=== PATIENT | female | born 1945 | race Caucasian/White ===

== ENCOUNTER → 2019-05-16 09:58 | Outpatient (CLI) | payer MEDICARE, BC ==
[2015-12-23 11:32] VITALS: BMI 29.2
[~2019-05-16 09:58] MED LIST: ASPIRIN325 MG PO; BAYER CHEWABLE81 MG PO; BENICAR HCT 40-1 TA1 PO; BUPROPION HCL100 M1 PO; CALCIUM 600 +1 EAC3 PO; CENTRUM COMPLE1 EACH PO; COREG CR40 MG PO; NEURONTIN 300300 MG PO; PLAQUENIL200 MG PO; PLAVIX75 MG PO; PRAVACHOL40 MG PO; RESTORIL15 MG PO; VICOPROFEN 7.5/1 TAB PO; ZANAFLEX4 MG PO; [UNRECOGNIZED DRUG - OTHER] PO
--- NOTE | 2019-05-20 14:29 | EC ---
PATIENT:RALF VALDEZ DATE OF SERVICE: 05/16/19 SEX: F MEDICAL RECORD: [id number] DATE OF : [birth year] LOCATION:[facility] AGE OF PATIENT: 74 ADMISSION DATE: 05/16/19 REFERRING PHYSICIAN: INTERPRETING PHYSICIAN: RUTH DIXON MD ECHOCARDIOGRAM REPORT ECHO CHARGES 4 ECHO COMPLETE Date: 05/16/19 CLINICAL DIAGNOSIS: SOB H/O CAD/HTN ECHOCARDIOGRAPHIC MEASUREMENTS (adult normal given) AC root (d.<3.7cm) 2.6 cm LV Septum d (<1.2 cm> 1.0 cm Valve Excursion 1.5 cm LV Septum (systole) 1.6 cm Left Atria (s.<4.0cm> 5.2 cm LVPW d(<1.2cm) 1.1 cm RV (d.<2.3cm) 2.8 cm LVPW (sytole) 1.6 cm LV diastole(<5.6CM) 5.3 cm MV E-F(>70mm/sec) cm LV systole 3.6 cm LVOT Diameter 2.0 cm MV exc.(>10mm) cm Est.ejection fraction (50-75%) % DOPPLER: LVIT cm/sec A 93.0 cm/sec E 70.0 cm/sec LA cm/sec RVSP 23.0 mmHg LVOT 116 cm/sec AOP1/2T m/s Asc. Ao 158 cm/sec RVOT 60.0 cm/sec RA cm/sec PA 93.0 cm/sec AV Gradient Peak 10.0 mmHg AV Mean 4.8 mmHg AV Area 2.7 cm MV Gradient Peak 3.8 mmHg MV Mean 1.3 mmHg MV Area cm COMMENTS: OP - HC Woodworking Machine Operator: 1 CRUZITO ILIANA Actuarial Science Professor: 3 Dr. Villanueva TAPE# PACS Pericardial Effusion N DATE OF SERVICE: Adequate 2D, color flow, spectral Doppler, and M-Mode. No LVH. LV internal dimensions are normal. Wall motion is normal. EF is greater than or equal to 55%. Aortic valve is tricuspid. No evidence of stenosis by Doppler interrogation. Mild AI by color flow imaging. Left atrium is dilated at 5.2 cm. Mitral valve shows no prolapse. Vdem-ij-ghpfeycw MR. Right-sided chambers are grossly normal. Mild TR. TRANSINT:[id number] Voice Confirmation ID: [id number] DOCUMENT ID: [id number] ECHOCARDIOGRAM REPORT [id number] RALF VALDEZ,RUTH Rosado MD at 1429 CC: [id number] DICTATION DATE: 05/19/19 1302 AUTO REBUILDER: 05/19/19 1319 DEP CLI 05/16/19 [place] [id number] [place] [id number]
== END | disposition home or self-care (01) ==
LOC: D.HCCARDIO 09:58
PROVIDERS: ATTEND Internal Medicine Interventional Cardiology
DX: I25.10 Atherosclerotic heart disease of native coronary artery without angina pectoris (principal)

== ENCOUNTER → 2019-06-05 09:35 | Outpatient (CLI) | payer MEDICARE, BC ==
[2015-12-23 11:32] VITALS: BMI 29.2
--- NOTE | 2019-06-09 14:34 | ST ---
PATIENT:RALF VALDEZ MEDICAL RECORD: [id number] SEX: F LOCATION:[facility] ORDER #: ADMISSION DATE: 06/05/19 AGE OF PATIENT: 74 REFERRING PHYSICIAN: INTERPRETING PHYSICIAN: PETE HEBERT MD DATE OF SERVICE: 06/05/2019 PROCEDURE: Nuclear stress test. INDICATION: Angina, coronary artery disease, and hypertension. She was exercised on standard Lexiscan protocol with 31 mCi sestamibi injected at peak stress, 10 mCi used previously for rest images. FINDINGS: Gated SPECT reveals preserved ejection fraction at 59% with good wall motion and thickening and brightening throughout all segments. SPECT imaging Cardiolite was used as myocardial perfusion agent. There is severe reversibility anteriorly and apically, this includes basal, mid apical, and anterior segments as well as the apex itself. The degree of reversibility is severe. The amount of myocardium involved is moderate. OVERALL IMPRESSION: 1. This is an intermediate to high risk nuclear stress test with reversible ischemia anteriorly and apically. 2. Gated SPECT reveals preserved ejection fraction at 59%. In this patient with ongoing symptomatology, the current scan does suggest the presence of clinically significant coronary artery disease. TRANSINT:[id number] Voice Confirmation ID: [id number] DOCUMENT ID: [id number] PETE HEBERT MD at 1434 CC: OCTAVIO LOPEZ [id number] DICTATION DATE: 06/08/19 1229 MESSAGING ARCHITECT: 06/08/19 1244 DEP CLI 06/05/19 [place] [id number]
== END | disposition home or self-care (01) ==
LOC: D.HCCARDIO 09:35
PROVIDERS: ATTEND Internal Medicine Interventional Cardiology
DX: I20.9 Angina pectoris, unspecified (principal)

== ENCOUNTER → 2019-06-09 09:18 | Outpatient (CLI) | payer MEDICARE, BC ==
[2015-12-23 11:32] VITALS: BMI 29.2
== END | disposition home or self-care (01) ==
LOC: D.US 09:18
PROVIDERS: ATTEND Internal Medicine Interventional Cardiology
DX: R09.89 Other specified symptoms and signs involving the circulatory and respiratory systems (principal)

== ENCOUNTER 2019-06-17 10:54 | Outpatient (CLI) | payer MEDICARE, BC ==
[~2019-06-17] VITALS: Ht 162.6 cm; Wt 77.3 kg
--- NOTE | ~2019-06-17 | HEMODYNAMI ---
PATIENT:RALF VALDEZ MEDICAL RECORD: [id number] : 49 LOCATION:D.CAT ADMISSION DATE: 06/17/19 Generatedon:06/18/20198:35 Patient name: RALF VALDEZ Patient #: [id number] SSN: [id number] : 1945 Date of study: 06/17/2019 Page: Of Hemodynamic Procedure Report Patient Data Patient Demographics Procedure consent was obtained First Name: RALF Gender: Female Last Name: JOSÉ MIGUEL : 1945 Patient #: [id number] Age: 74 year(s) Race: SSN: [id number] Additional ID: [id number] Contact details [address]: [address] [place] [address] State: [place] City: [place] Zip code: [address] Past Medical History Performed procedures and imaging results Date Procedure Procedure Results Comments Stress testing with Positive SPECT MPI Allergies Allergen Reaction Date Comments Reported Penicillins 10/11/2014 Other 10/11/2014 Lisinopril allergy Other 06/17/2019 BENADRYL/LISIOPRIL/PCN allergy Admission Admission Data Admission Date: 06/17/2019 Admission Time: 10:54 Arrival Date: 06/17/2019 Arrival Time: 0:00 Admit Source: Other Insurance Payor: Medicare [facility] #: [id number] Height (in.): 64.17 BSA: 1.83 (m2) Height (cm.): 163 BMI: 28.98 (kg/m2) Weight (lbs.): 169.76 Weight (kg.): 77 Lab Results Lab Result Date: 06/17/2019 Lab Result Time: 0:00 Biochemistry Name Units Result Min Max BUN mg/dl 21 --(----)-* 7 18 Creatinine mg/dl 0.7 --(*---)-- 0.6 1.3 eGFR ml/min 87 -*(----)-- 90 120 NONAFRICAN CBC Name Units Result Min Max Hemoglobin g/dl 12.9 -*(----)-- 13.5 17.5 Procedure Procedure Types Cath Procedure Diagnostic Procedure [facility] w/Coronaries FFR/IVUS FFR Initial Sedation Charges Moderate Sedation up to 15 minutes Procedure Description Procedure Date Procedure Date: 06/17/2019 Procedure Start Time: 13:11 Procedure End Time: 13:28 Procedure Staff Name Function Lyudmila Ohara RT Scrub Hemant Laura MD Performing Physician Cele Cruz RT Monitor Kirill Lee RN Nurse Roula Hernandez RT Monitor Anai Machado RN Window Shade Cutter And Mounter Indication CAD Procedure Data Cath Procedure Fluoroscopy Diagnostic fluoroscopy Total fluoroscopy Time: 1.6 time: 1.6 min min Diagnostic fluoroscopy Total fluoroscopy dose: 325 dose: 325 mGy mGy Contrast Material Contrast Material Type Amount (ml) Isovue 300 60 Entry Location Entry Primary Successful Side Size Upsize Upsize Entry Closure Succes sful Closure Location (Fr) 1 (Fr) 2 (Fr) Remarks Device Remarks Femoral Right 5 Fr 6 Fr Exoseal artery Short Estimated blood loss: 5 ml Diagnostic catheters Device Type Used For End Catheter Placement MULTIPACK JL 4.0 5Fr Left Coronary catheter Angiography MULTIPACK 3DRC 5Fr Right Coronary catheter Angiography MULTIPACK Pigtail 5 Fr LV Angiography catheter Procedure Complications No complications Procedure Medications Medication Administration Route Dosage Versed I.V. 2 mg Fentanyl I.V. 100 mcg Versed I.V. 2 mg 0.9% NaCl I.V. 100 ml/hr Oxygen etCO2 Nasal cannula 2 l/min Heparin Flush Bag added to field 2 bags (1000units/500ml NS) Lidocaine 2% added to field 20 Hemodynamics Rest HGB: 12.9 (g/dl) O2 Consumption: Estimated: 164.1 (ml/min) O2 Consumption indexe d: Estimated:89.67 (ml/min/m) Heart Rate: 65 (bpm) Pressure Samples Time Site Value (mmHg) Purpose Heart Use Rate(bpm) 13:16 LV 90/32,17 Snapshot 71 Gradients Valve Time Site Site Mean SEP/DFP Peak To Heart Use 1 2 (mmHg) (sec/min) Peak Rate (mmHg) (bpm) Aortic 13:16 LV AO 77 Snapshots Pre Cath Intra NCS Post Cath Vital Signs Time Heart Resp SPO2 etCO2 NIBP Rhythm Pain Sedation Rate (ipm) (%) (mmHg) (mmHg) Status Level (bpm) 12:58:39 65 10 100 24.8 139/68(97) NSR 0 (11) 10(A) , No pain 13:02:47 60 16 97 29.3 118/65(83) NSR 0 (11) 10(A) , No pain 13:07:00 56 11 94 42.1 106/58(91) NSR 0 (11) 10(A) , No pain 13:11:10 59 12 95 41.3 109/62(90) NSR 0 (11) 10(A) , No pain 13:15:20 63 13 94 42.1 90/50(78) NSR 0 (11) 9(A) , No pain 13:19:24 60 12 94 42.1 102/57(86) NSR 0 (11) 9(A) , No pain 13:23:34 58 22 95 40.6 105/53(91) NSR 0 (11) 10(A) , No pain 13:27:46 60 9 96 41.3 100/57(86) NSR 0 (11) 10(A) , No pain Medications Time Medication Route Dose Verified Delivered Reason Notes Eff ectiveness by by 13:04:02 0.9% NaCl I.V. 100 Kirill Kirill Per ml/hr Rosa Lee physician RN RN 13:04:21 Heparin Flush added 2 Kirill Kirill used for Bag to bags Lorigan Rosa procedure (1000units/500ml field RN RN NS) 13:04:32 Lidocaine 2% added 20ml Kirill Kirill for local to vial Lorigan Lorigan anesthetic field RN RN 13:05:12 Oxygen etCO2 2 Kirill Kirill for low 02 Nasal l/min Lorigan Lorigan sats cannula RN RN 13:08:18 Versed I.V. 2 mg Kirill Kirill for Lorigan Lorigan sedation RN RN 13:08:29 Fentanyl I.V. 100 Kirill Kirill for mcg Lorigan Lorigan sedation RN RN 13:11:01 Versed I.V. 2 mg Kirill Kirill for Lorigan Lorigan sedation RN special agent group insurance Log Time Note 12:48:00 Diagnostic Cath Status : Elective 12:48:21 Indication : CAD 12:48:51 Kirill Lee RN sent for patient. Start room use. 12:50:16 Informed consent obtained and on chart 12:52:30 Admit Source: Other 12:52:41 ACC Patient presents with Stable Angina CCS Anginal Class 2--Slight limitation of ordinary activity. 12:52:48 Procedure Status Elective Heart Cath (OP). 12:52:54 Time tracking: Regular hours (M-F 7:00 - 5:00) 12:53:02 Plan of Care:Hemodynamics will remain stable., Cardiac rhythm will remain stable., Comfort level will be maintained., Respiratory function will remain adequate., Patient/ family verbilizes understanding of procedure., Procedure tolerated without complication., Recovers from procedure without complications.. 12:53:09 Patient received from Pre/Post Procedure Room to CCL 1 Alert and oriented. Tansferred to table in Supine position. 12:53:35 Warm blankets applied, and ander hugger turned on for patient comfort. 12:53:36 Correct patient and procedure confirmed by team. 12:53:37 ECG and BP/O2 sat monitors applied to patient. 12:56:38 Patient Height : 64.17 inches 12:56:44 Patient Weight : 169.76 lbs 12:56:53 Arrival Date: 06/17/2019 12:00:00 AM 12:57:21 Insurance Payor : Medicare 12:57:35 Vital chart was started 12:57:38 Baseline sample Acquired. 12:58:05 Rhythm: sinus rhythm 12:58:08 Full Disclosure recording started 12:58:09 - 12:58:15 H&P Date Dictated: 06/17/2019 H&P Addendum completed by physician on day of procedure. (MUST COMPLETE FOR ALL OUTPATIENTS), New H&P dictated by physician.. 12:58:17 Pre-procedure instructions explained to patient. 12:58:18 Pre-op teaching completed and patient verbalized understanding. 12:58:21 Family in waiting room. 12:58:23 Patient NPO since Midnight. 12:58:58 Patient allergic to Other allergyBENADRYL/LISIOPRIL/PCN 12:59:06 Is the patient allergic to Iodine/contrast media? No. 12:59:13 Is patient on blood thinner?No 12:59:22 Patient diabetic? No. 12:59:26 ----Pre-sedation anethsthesia assessment.---- 12:59:31 Previous problem with sedation/anesthesia? No ? 12:59:34 Snore? No 12:59:36 Sleep apnea? No 12:59:38 Deviated septum? No 12:59:40 Opens mouth fully? Yes 12:59:41 Sticks out tongue? Yes 12:59:46 Airway obstruction? No ? 12:59:51 Dentures? No ? 12:59:57 Pre procedure: right dorsailis pedis pulse 2+ Normal; easily identifiable; not easily obliterated 13:00:23 Patient pain scale 0/10 ?. 13:00:33 IV patent on arrival in right antecubital with 0.9% NaCl at [facility]. 13:01:15 Lab Result : eGFR NONAFRICAN 87 ml/min 13:01:15 Lab Result : Hemoglobin 12.9 g/dl 13:01:15 Lab Result : BUN 21 mg/dl 13:01:15 Lab Result : Creatinine 0.7 mg/dl 13:01:28 Lab results completed and on chart. 13:01:35 Right groin area was prepped with chlora-prep and draped in sterile fashion 13:01:37 Alarms reviewed by R. N. 13:01:38 Sharps counted by scrub and verified by R.N. 13:01:46 Use device set Femoral Dx 13:01:47 ACIST Syringe (61512) opened to sterile field. 13:01:48 Bag Decanter (2002S) opened to sterile field. 13:01:49 Medline Cath Pack ([id number]) opened to sterile field. 13:01:52 ACIST Hand Control (19884) opened to sterile field. 13:02:00 ACIST Manifold (70483) opened to sterile field. 13:02:02 Tegaderm 4 x 4 (1626W) opened to sterile field. 13:02:21 SHEATH 5FR [place] (QQW587) opened to sterile field. 13:02:22 EMERALD Guide Wire (036-929) opened to sterile field. 13:02:42 DIAGNOSTIC Multipack 5Fr catheter set (OL6548) opened to sterile field. 13:04:02 0.9% NaCl 100 ml/hr I.V. was administered by Kirill Lee RN; Per physician; Verbal order read back and verified. 13:04:21 Heparin Flush Bag (1000units/500ml NS) 2 bags added to field was administered by Kirill Lee RN; used for procedure; Verbal order read back and verified. 13:04:32 Lidocaine 2% 20ml vial added to field was administered by Kirill Lee RN; for local anesthetic; Verbal order read back and verified. 13:05:08 Zero performed for pressure channel P1 13:05:12 Oxygen 2 l/min etCO2 Nasal cannula was administered by Kirill Lee RN; for low 02 sats; Verbal order read back and verified. 13:05:59 Physician arrived 13:06:00 --------ALL STOP TIME OUT------ 13:06:02 Final Timeout: patient, procedure, and site verified with staff and physician. All members of the team are in agreement. 13:06:05 Right groin site verified by team. 13:06:12 Fire Safety Assessment: A--An alcohol-based skin anteseptic being used preoperatively., C--Open oxygen or nitrous oxide is being used., D--An ESU, laser, or fiber-optic light is being used. 13:06:22 Physical assessment completed. ASA score P 2 - A patient with mild systemic disease as per Hemant Laura MD. 13:06:29 2) 60-89 Mildly reduced kidney function, and other findings (as for stage 1) point to kidney disease. 13:07:16 Maximum allowable contrast dose (3.7 X eGFR X 0.75)241 ml. 13:07:29 Sedation plan: IV Moderate Sedation Medication:Versed, Fentanyl 13:08:18 Versed 2 mg I.V. was administered by Kirill Lee RN; for sedation; Verbal order read back and verified. :08:29 Fentanyl 100 mcg I.V. was administered by Kirill Lee RN; for sedation; Verbal order read back and verified. 13:10:50 Zero performed for pressure channel P1 13:11:01 Versed 2 mg I.V. was administered by Kirill Lee RN; for sedation; Verbal order read back and verified. 13:11:03 Procedure started. 13:11:08 Local anesthetic to right femoral artery with Lidocaine 2% by Hemant Isabel MD.INITIAL ACCESS ONLY 13:12:00 A 5 Fr sheath was inserted into the Right Femoral artery 13:12:18 A MULTIPACK JL 4.0 5Fr catheter was advanced over the wire and used for Left Coronary Angiography. 13:13:05 LCA angiography performed. 13:13:11 Injector settings: Ml/sec: 3, Volume: 5, 13:13:49 Catheter removed. 13:13:58 A MULTIPACK 3DRC 5Fr catheter was advanced over the wire and used for Right Coronary Angiography. 13:14:30 RCA angiography performed. 13:15:38 Catheter removed. 13:15:42 ACCDominant side:Co-Dominant 13:15:56 A MULTIPACK Pigtail 5 Fr catheter was advanced over the wire and used for LV Angiography. 13:16:21 LV hemodynamics recorded. 13:16:26 LV gram done using REZA 13:16:41 EF : 55 % 13:17:01 INFLATOR Merit BasixCompak (QO3171) opened to sterile field. 13:17:35 SHEATH 6FR [place] (MNG362) opened to sterile field. 13:17:37 Drury Verrata Plus pressure wire (18320N) opened to sterile field. 13:17:50 GUIDE 6FR HS I catheter (LA6HSI) opened to sterile field. 13:18:03 Proceeding to intervention. 13:18:20 Sheath upsized to a 6 Fr Short. 13:18:36 6 Fr HS1 guide catheter was inserted over the wire 13:20:02 FFR/IFR wire advanced. 13:21:16 Wire advanced across lesion. 13:21:49 mRCA lesion measured at 1.00 with IFR 13:22:01 Wire removed. 13:22:02 Guide catheter removed. 13:22:25 EXOSEAL 6Fr (EX600) opened to sterile field. 13:22:47 Sheath removed intact; hemostasis achieved with Exoseal to the Right Femoral artery. 13:22:54 Procedure ended.(Physican Out) 13:24:14 Fluoroscopy time 01.60 minutes. 13:24:24 Fluoroscopy dose: 325 mGy 13:24:24 Flurop Dose total: 325 13:24:34 Dose Area Product 40973 mGy/cm. 13:25:04 Contrast amount:Isovue 300 60ml. 13:25:08 Maximum allowable dose exceeded? No. 13:25:11 Sharps counted by scrub and verified by R.N. 13:25:17 Insertion/operative site no bleeding no hematoma. 13:25:22 Post-op/insertion site Right Femoral artery dressed using a 4 x 4 and Tegaderm. 13:25:27 Post Procedure Pulses reassessed and unchanged 13:25:34 Post-procedure physical assessment completed. ASA score P 2 - A patient with mild systemic disease as per Hemant Laura MD. 13:25:38 Post procedure rhythm: unchanged. 13:25:42 Estimated blood loss: 5 ml 13:25:45 Post procedure instruction explained to patient.Patient verbalizes understanding. 13:25:46 Patient needs reinforcement of post procedure teaching. 13:27:20 Procedure type changed to Cath procedure, Diagnostic procedure, LHC, LH C w/Coronaries, FFR/IVUS, FFR Initial, Sedation Charges, Moderate Sedation up to 15 minutes 13:28:07 Procedure and supply charges have been captured, reviewed, submitted an d are correct. 13:28:16 Procedure Complication : No complications 13:28:20 Vital chart was stopped 13:28:21 See physician's report for complete and final results. 13:28:23 Report given to Pre/Post Procedure Room. 13:28:28 Patient transfered to Pre/Post Procedure Room with Stretcher. 13:28:36 Full Disclosure recording stopped 13:28:36 Procedure ended. 13:29:27 End room use (Document Last) 14:16:39 mild to moderate CAD (<70%) 14:17:52 Operative report dictated upon procedure completion. Device Usage Item Name Manufacture Quantity Catalog Hospital Part Current Minima l Lot# / Number Charge Number Stock Stock Serial# Code ACIST Acist 1 84426 252758 020868 406474 20 Syringe SameDayPrinting.com (63780) Systems Inc Bag Microtek 1 515314 86237 183470 5 Decanter Medical Inc. () Medline Medline 1 [id number] 431339 68586 730202 5 Cath Pack ([id number]) ACIST Hand Acist 1 83252 390801 593368 815675 5 Control Medical (18949) Systems Inc ACIST Acist 1 88555 437585 089946 928860 5 Manifold Medical (31019) Systems Inc Tegaderm 4 3M 1 1626W 775104 644275 071746 5 x 4 (1626W) SHEATH 5FR Terumo 1 RVI470 115674 642521 554576 5 [place] (WPH716) EMERALD Cardinal 1 502-455 512597 245494 789420 5 Guide Wire Health (502-455) DIAGNOSTIC Cardinal 1 PP8380 029435 87172 268184 30 Multipack Issuu 5Fr catheter set (WY3764) MULTIPACK Cardinal 1 296405 5 JL 4.0 5Fr Health catheter MULTIPACK Cardinal 1 198071 5 3DRC 5Fr Health catheter MULTIPACK Cardinal 1 393174 5 Pigtail 5 Health Fr catheter INFLATOR Merit 1 HG5640 652746 814635 806086 15 [facility] Medical BasixCompak (KS7570) SHEATH 6FR Terumo 1 IZU891 834425 136199 035267 40 [place] (SLP901) Drury Drury 1 94511L 927576 [id number] 767664 5 Verrata Plus pressure wire (51721I) GUIDE 6FR Medtronic 1 LA6HSI 147923 04689 418988 1 HS I catheter (LA6HSI) EXOSEAL 6Fr Cardinal 1 EX600 892162 709535 792018 10 (EX600) Health Signature Audit [place] Stage Time Signature Unsigned Intra-Procedure 06/17/2019 Cele 1:29:52 PM Anthony RT(R) (CV) Intra-Procedure 06/17/2019 Kirill 1:30:23 PM Rosa MENJIVAR Intra-Procedure 06/17/2019 Hemant Loera 1:35:45 PM Chalo STEWART Intra-Procedure 06/17/2019 Hemant Loera 1:47:31 PM Chalo STEWART Intra-Procedure 06/17/2019 Hemant Loera 3:49:42 [place] [address]
[2019-06-17] MEDS ORDERED: ASPIRIN325 MG PO (11:09)
[2019-06-17 11:14] VITALS: BP 124/74; Ht 162.6 cm; Wt 77.3 kg
[2019-06-17 11:28] LABS: BASOPHILS 0.2 % (0-2); EOSINOPHILS 1.8 % (0-7); HEMOGLOBIN 12.9 g/dL (12-16); IMMATURE GRANULOCYTES 0.2 % (0-5); LYMPHOCYTES 27.2 % (15-50); MCH 29.7 pg (26.0-34.0); MCHC 33.9 g/dL (31.0-37.0); MCV 87.4 fL (80.0-100.0); MEAN PLATELET VOLUME 10.8 fL (7.4-10.4); NEUTROPHILS 62.6 % (40-80); RBC 4.35 10x6/uL (4.00-5.40); WBC 8.9 10x3/uL (4.8-10.8)
[2019-06-17 11:29] LABS: PLATELET COUNT 119 10x3/uL (130-400)
[2019-06-17 11:42] LABS: ALT (SGPT) 26 U/L (10-68); CALC OSMOLALITY 281 mosm/kg (275-300); CALCIUM 8.9 mg/dL (8.5-10.1); CARBON DIOXIDE 29.4 mmol/L (21.0-32.0); CHLORIDE - SERUM 104 mmol/L (98-107); CHOL - HDL RATIO 4.2 ratio (2.3-4.1); CHOLESTEROL, TOTAL 233 mg/dL (0-200); CREATININE - SERUM 0.7 mg/dL (0.6-1.3); GLUCOSE 103 mg/dL (74-106); HDL CHOLESTEROL 55 mg/dL (32-96); LDL CHOLESTEROL 147 mg/dL (0-100); LDL-HDL RATIO 2.7 ratio (1.5-3.5); POTASSIUM - SERUM 3.6 mmol/L (3.5-5.1); SODIUM 140 mmol/L (136-145); TRIGLYCERIDE 158 mg/dL (30-200); UREA NITROGEN 21 mg/dL (7-18); eGFR NON AFRICAN AMERICAN 87 mL/min (90-120)
--- NOTE | 2019-06-17 13:38 | NUR ---
PT ARRIVED BY STRETCHER. PLACED ON MONITOR. DR. DIXON ROUNDED AND SPOKE WITH PT'S FAMILY. ASSESSMENT COMPLETED. CALL LIGHT WITHIN REACH.
--- NOTE | 2019-06-17 13:53 | NUR ---
PT RESTING COMFORTABLY. VSS. RIGHT GROIN DRESSING C/D/I. NO S/S OF HEMATOMA NOTED. CALL LIGHT WITHIN REACH. FAMILY AT BEDSIDE.
--- NOTE | 2019-06-17 14:23 | NUR ---
RIGHT GROIN DRESSING C/D/I. NO S/S OF HEMATOMA NOTED. CALL LIGHT WITHIN REACH. VSS. FAMILY AT BEDSIDE.
--- NOTE | 2019-06-17 14:45 | NUR ---
HEAD OF BED INC TO 30 DEGREES. TOLERATED WELL. RIGHT GROIN DRESSING C/D/I. NO S/S OF HEMATOMA NOTED. CALL LIGHT WITHIN REACH. FAMILY AT BEDSIDE.
--- NOTE | 2019-06-17 15:00 | NUR ---
PT SET UP WITH SANDWICH TRAY AND DRINK. DENIES NAUSEA AT THIS TIME. VSS. RIGHT GROIN DRESSING C/D/I. NO S/S OF HEMATOMA NOTED.
--- NOTE | 2019-06-17 15:20 | NUR ---
RIGHT ARM PIV D/C'D WITH CATH TIP INTACT. TOLERATED WELL. DISCUSSED DISCHARGE INSTRUCTIONS WITH PT. SHE VOICED UNDERSTANDING. RIGHT GROIN DRESSING C/D/I. NO S/S OF HEMATOMA NOTED. PT INSTRUCTED TO GET UP AND DRESSED AT THIS TIME.
--- NOTE | 2019-06-17 15:30 | NUR ---
PT AMBULATED TO RESTROOM. VOIDED WITHOUT DIFFICULTY. TAKEN OUT TO VEHICLE BY WHEELCHAIR. NO S/S OF DISTRESS NOTED. ALL BELONGINGS AND PAPERWORK IN HAND.
--- NOTE | 2019-06-18 11:08 | OP ---
PATIENT NAME: RALF VALDEZ MEDICAL RECORD: [id number] :49 LOCATION:D.CAT ADMISSION DATE: SURGEON: RUTH DIXON MD DATE OF OPERATION: 06/17/2019 PROCEDURES: Left heart catheterization, selective coronary angiography, plus IFR to the right coronary. CATHETERS: A 5-Marshallese sheath, 6-Marshallese sheath. A JL4 diagnostic JL4 and JR4 diagnostic pigtail catheter and toxic procedure was well tolerated. The patient was returned to berry. Sheath was removed. ExoSeal device placed. FINDINGS: Left ventriculography in 30-degree REZA view: Normal wall motion and normal systolic function. CORONARY ANATOMY: LEFT MAIN: Left main is free of disease. LAD: The area of previous LAD stenting is widely patent without evidence of restenosis. No progression of igiugig disease. CIRCUMFLEX: Circumflex free of disease. RIGHT CORONARY ARTERY: Has a questionable area of stenosis in mid portion, therefore we changed out to a 6-Marshallese and hockey stick guide catheter using IFR wire. This showed no evidence of significant obstruction of the right coronary as well. Noncardiac chest pain. TRANSINT:[id number] Voice Confirmation ID: [id number] DOCUMENT ID: [id number] RUTH DIXON MD at 1108 CC: [id number] DICTATION DATE: 06/17/19 1332 HOME ATTENDANT: 06/17/19 1639 DEP CLI 06/17/19 [facility] [address] [place] [address]
== END 2019-06-17 15:30 | disposition home or self-care (01) ==
LOC: D.CATH 10:54
PROVIDERS: ATTEND Internal Medicine Interventional Cardiology
DX: R07.89 Other chest pain (principal); R94.30 Abnormal result of cardiovascular function study, unspecified; I25.110 Atherosclerotic heart disease of native coronary artery with unstable angina pectoris

== ENCOUNTER → 2019-11-26 16:10 | Outpatient (CLI) | payer MEDICARE, BC ==
[2019-06-17 11:14] VITALS: BMI 29.2
[2019-11-26 16:42] LABS: CHOL - HDL RATIO 4.6 ratio (2.3-4.1); LDL-HDL RATIO 2.9 ratio (1.5-3.5)
== END | disposition home or self-care (01) ==
LOC: D.LABREF 16:10
PROVIDERS: ATTEND Nurse Practitioner
DX: I25.10 Atherosclerotic heart disease of native coronary artery without angina pectoris (principal); E78.5 Hyperlipidemia, unspecified

== ENCOUNTER → 2020-02-10 08:35 | Outpatient (CLI) | payer MEDICARE, BC ==
[2019-06-17 11:14] VITALS: BMI 29.2
== END | disposition home or self-care (01) ==
LOC: D.HCCARDIO 08:35
PROVIDERS: ATTEND Internal Medicine Cardiovascular Disease
DX: I25.119 Atherosclerotic heart disease of native coronary artery with unspecified angina pectoris (principal)

== ENCOUNTER → 2020-02-12 20:53 | Outpatient (CLI) | payer MEDICARE, BC ==
[2019-06-17 11:14] VITALS: BMI 29.2
== END | disposition home or self-care (01) ==
LOC: D.LABREF 20:53
PROVIDERS: ATTEND Internal Medicine Interventional Cardiology
DX: E78.5 Hyperlipidemia, unspecified (principal)

== ENCOUNTER 2020-02-18 07:11 | Outpatient (CLI) | payer MEDICARE, BC ==
[~2020-02-18] VITALS: Ht 162.6 cm; Wt 73.6 kg
--- NOTE | ~2020-02-18 | HEMODYNAMI ---
PATIENT:RALF VALDEZ MEDICAL RECORD: [id number] : 49 LOCATION:D.CAT ADMISSION DATE: 02/18/20 Generatedon:02/18/20209:14 Patient name: RALF VALDEZ Patient #: [id number] SSN: [id number] : 1945 Date of study: 02/18/2020 Page: Of Hemodynamic Procedure Report Patient Data Patient Demographics Procedure consent was obtained First Name: RALF Gender: Female Last Name: JOSÉ MIGUEL : 1945 Patient #: [id number] Age: 74 year(s) Race: SSN: [id number] Additional ID: [id number] Contact details Address: [address] [place] [address] State: [place] City: [place] Zip code: [address] Past Medical History Allergies Allergen Reaction Date Comments Reported Penicillins 10/11/2014 Other 10/11/2014 Lisinopril allergy Other 06/17/2019 BENADRYL/LISIOPRIL/PCN allergy Other 02/18/2020 LISINOPRIL/PENICILLINS/ROSUVASTATIN/STATINS-HMG- COA allergy REDUCTASE INHIBITORS Admission Admission Data Admission Date: 02/18/2020 Admission Time: 7:11 Arrival Date: 02/18/2020 Arrival Time: 0:00 Height (in.): 64 BSA: 1.8 (m2) Height (cm.): 162.56 BMI: 28.32 (kg/m2) Weight (lbs.): 165 Weight (kg.): 74.84 Lab Results Lab Result Date: 02/18/2020 Lab Result Time: 0:00 Biochemistry Name Units Result Min Max BUN mg/dl 19 --(----)*- 7 18 eGFR ml/min 87 -*(----)-- 90 120 NONAFRICAN CBC Name Units Result Min Max Hematocrit % 38.6 *-(----)-- 42 54 Hemoglobin g/dl 12.9 -*(----)-- 13.5 17.5 Procedure Procedure Types Cath Procedure Diagnostic Procedure [facility] w/Coronaries Sedation Charges Moderate Sedation up to 15 minutes PCI Procedure Coronary Stent Coronary Stent Initial Hemochron ACT Test Procedure Description Procedure Date Procedure Date: 02/18/2020 Procedure Start Time: 8:52 Procedure End Time: 9:12 Procedure Staff Name Function Hemant Laura MD Performing Physician Anai Machado RN Nurse Cele Cruz RT Monitor Natalya Orellana RT Scrub Roula Hernandez RT Business Trainer Procedure Data Cath Procedure Fluoroscopy Diagnostic fluoroscopy Total fluoroscopy Time: 3.5 time: 3.5 min min Diagnostic fluoroscopy Total fluoroscopy dose: 500 dose: 500 mGy mGy Contrast Material Contrast Material Type Amount (ml) Isovue 300 66 Entry Location Entry Primary Successful Side Size Upsize Upsize Entry Closure Succes sful Closure Location (Fr) 1 (Fr) 2 (Fr) Remarks Device Remarks Femoral Right 5 Fr 6 Fr Exoseal artery Short Estimated blood loss: 10 ml Diagnostic catheters Device Type Used For End Catheter Placement MULTIPACK JL 4.0 5Fr Left Coronary catheter Angiography MULTIPACK 3DRC 5Fr Right Coronary catheter Angiography MULTIPACK Pigtail 5 Fr LV Angiography catheter Procedure Complications No complications Procedure Medications Medication Administration Route Dosage 0.9% NaCl I.V. 100 ml/hr Oxygen etCO2 Nasal cannula 2 l/min Lidocaine 2% added to field 20 Heparin Flush Bag added to field 2 bags (1000units/500ml NS) Versed I.V. 2 mg Fentanyl 50 mcg Versed I.V. 2 mg Fentanyl 50 mcg Heparin Bolus I.V. 5000 units Integrilin (Bolus I.V. 6.8 ml 2mg/ml) Integrilin (Bolus wasted 3.2 ml 2mg/ml) Plavix P.O. 600 mg Hemodynamics Rest BSA: 1.8 (m2) HGB: 12.9 (g/dl) O2 Consumption: Estimated: 159.27 (ml/min) O2 Con sumption indexed: Estimated:88.48 (ml/min/m) Heart Rate: 62 (bpm) Pressure Samples Time Site Value (mmHg) Purpose Heart Use Rate(bpm) 8:56 LV 95/7,10 Snapshot 61 Gradients Valve Time Site Site Mean SEP/DFP Peak To Heart Use 1 2 (mmHg) (sec/min) Peak Rate (mmHg) (bpm) Aortic 8:57 LV AO 61 Snapshots Pre Cath Intra NCS Post Cath Vital Signs Time Heart Resp SPO2 etCO2 NIBP (mmHg) Rhythm Pain Sedation Rate (ipm) (%) (mmHg) Status Level (bpm) 8:37:30 64 12 100 35.1 135/68(106) NSR 0 (11) 10(A) , No pain 8:41:40 63 21 100 31.3 122/65(98) NSR 0 (11) 10(A) , No pain 8:45:56 59 14 99 41 119/58(94) SB 0 (11) 10(A) , No pain 8:50:08 62 15 97 35.8 107/59(86) NSR 0 (11) 10(A) , No pain 8:54:18 61 13 98 32.8 108/59(90) NSR 0 (11) 10(A) , No pain 8:58:30 61 15 98 34.3 104/54(81) NSR 0 (11) 9(A) , No pain 9:02:41 61 14 98 36.6 91/49(73) NSR 0 (11) 9(A) , No pain 9:06:45 63 16 96 20.9 97/57(78) NSR 0 (11) 10(A) , No pain 9:10:53 62 18 96 29.8 104/54(88) NSR 0 (11) 10(A) , No pain Medications Time Medication Route Dose Verified Delivered Reason Notes Effectiveness by by 8:36:29 0.9% NaCl I.V. 100 Hemant Anai used for ml/hr Keya Carter procedure MD MENJIVAR 8:36:34 Oxygen etCO2 2 Hemant Anai used for Nasal l/min KeyaChalo Machado procedure cannula RN 8:36:38 Lidocaine 2% added 20ml Hemant Marcos for local [facility] STEWART 8:36:44 Heparin Flush added 2 Hemant Hemant used for Bag to bags Keya Keya procedure (1000units/500ml field MD STEWART NS) 8:50:34 Versed I.V. 2 mg Hemant Anai for sedation St Chalo Machado MD RN 8:50:44 Fentanyl 50 Hemant Anai for sedation mcg [facility] Chalo Machado MD RN 8:54:52 Versed I.V. 2 mg Hemant Anai for sedation St Chalo Machado MD, RN 8:54:56 Fentanyl 50 Hemant Ospina for sedation mcg St Chalo Machado MD, RN 8:59:45 Heparin Bolus I.V. 5000 Hemant Ospina for verifi ed units St Chalo Machado anticoagulation with Dr. MD OTTO Villanueva 8:59:57 Integrilin I.V. 6.8 Hemant Ospina for (Bolus 2mg/ml) ml St Chalo Machado antiplatelet RN therapy 9:00:07 Integrilin wasted 3.2 Hemant Ospina for (Bolus 2mg/ml) ml St Chalo Machado antiplatelet RN therapy 9:00:14 Plavix P.O. 600 Hemant [address] for mg St Chalo Machado antiplatelet RN therapy Procedure Log Time Note 8:05:45 Informed consent obtained and on chart 8:07:14 Procedure Status Elective Heart Cath (OP). 8:07:18 Time tracking: Regular hours (M-F 7:00 - 5:00) 8:07:28 Plan of Care:Hemodynamics will remain stable., Cardiac rhythm will remain stable., Comfort level will be maintained., Respiratory function will remain adequate., Patient/ family verbilizes understanding of procedure., Procedure tolerated without complication., Recovers from procedure without complications.. 8:07:40 Arrival Date: 02/18/2020 12:00:00 AM 8:07:57 Patient Height : 64 inches 8:08:06 Patient Weight : 165 lbs 8:11:16 Patient allergic to Other allergyLISINOPRIL/PENICILLINS/ROSUVASTATIN/RDJCWSJ-YXR-CEL REDUCTASE INHIBITORS 8:18:49 Stress Test: yes; abnormal INFERIORLY 8:23:50 Anai Machado RN sent for patient. Start room use. 8:27:28 Patient received from Pre/Post Procedure Room to CCL 1 Alert and oriented. Tansferred to table in Supine position. 8:27:31 Warm blankets applied, and ander hugger turned on for patient comfort. 8:27:36 Correct patient and procedure confirmed by team. 8:27:37 ECG and BP/O2 sat monitors applied to patient. 8:36:19 Vital chart was started 8:36:29 0.9% NaCl 100 ml/hr I.V. was administered by Anai Machado RN; used for procedure; Verbal order read back and verified. 8:36:34 Oxygen 2 l/min etCO2 Nasal cannula was administered by Anai Machado RN; used for procedure; Verbal order read back and verified. 8:36:38 Lidocaine 2% 20ml vial added to field was administered by Hemant Laura MD; for local anesthetic; Verbal order read back and verified. 8:36:44 Heparin Flush Bag (1000units/500ml NS) 2 bags added to field was administered by Hemant Laura MD; used for procedure; Verbal order read back and verified. 8:36:58 Baseline sample Acquired. 8:37:06 Rhythm: sinus rhythm 8:37:08 Full Disclosure recording started 8:37:09 8:37:34 H&P Date Dictated: 02/18/2020 H&P Addendum completed by physician on day of procedure. (MUST COMPLETE FOR ALL OUTPATIENTS), New H&P dictated by physician.. 8:37:35 Pre-procedure instructions explained to patient. 8:37:37 Pre-op teaching completed and patient verbalized understanding. 8:37:51 Family unavailable. 8:37:53 Patient NPO since Midnight. 8:38:00 Is the patient allergic to Iodine/contrast media? No. 8:38:03 Was the patient premedicated? No 8:38:06 Is patient on blood thinner?No 8:38:10 Patient diabetic? No. 8:38:16 ----Pre-sedation anethsthesia assessment.---- 8:38:21 Previous problem with sedation/anesthesia? No ? 8:38:24 Snore? Yes 8:38:27 Sleep apnea? No 8:38:31 Deviated septum? Unknown 8:38:33 Opens mouth fully? Yes 8:38:36 Sticks out tongue? Yes 8:38:55 Airway obstruction? No SLEEPS WITH 2 L O2 AT NIGHT 8:38:59 Dentures? No ? 8:39:04 Pre procedure: right dorsailis pedis pulse 2+ Normal; easily identifiable; not easily obliterated 8:39:15 IV patent on arrival in right hand with 0.9% NaCl at KVO. 8:43:10 Lab Result : BUN 19 mg/dl 8:43:10 Lab Result : eGFR NONAFRICAN 87 ml/min 8:43:10 Lab Result : Hemoglobin 12.9 g/dl 8:43:10 Lab Result : Hematocrit 38.6 % 8:43:17 Lab results completed and on chart. 8:43:26 Right groin area was prepped with chlora-prep and draped in sterile fashion 8:43:29 Alarms reviewed by R. N. 8:43:30 Sharps counted by scrub and verified by R.N. 8:43:35 Use device set Femoral Dx 8:43:37 ACIST Syringe (95742) opened to sterile field. 8:43:38 Bag Decanter (2002S) opened to sterile field. 8:43:39 Medline Cath Pack ([id number]) opened to sterile field. 8:43:40 ACIST Hand Control (57175) opened to sterile field. 8:43:41 ACIST Manifold (56214) opened to sterile field. 8:43:42 DIAGNOSTIC Multipack 5Fr catheter set (SL5536) opened to sterile field. 8:43:43 Tegaderm 4 x 4 (1626W) opened to sterile field. 8:43:45 SHEATH 5FR [place] (CRL681) opened to sterile field. 8:43:47 EMERALD Guide Wire (700-888) opened to sterile field. 8:49:46 Risk of Mortality: 0.1 8:49:50 Risk of blood transfusion: 0.2 8:49:54 Risk of KAMILLE: 0.6 8:49:57 Physician arrived 8:49:58 --------ALL STOP TIME OUT------ 8:49:59 Final Timeout: patient, procedure, and site verified with staff and physician. All members of the team are in agreement. 8:50:01 Right groin site verified by team. 8:50:08 Fire Safety Assessment: A--An alcohol-based skin anteseptic being used preoperatively., C--Open oxygen or nitrous oxide is being used., D--An ESU, laser, or fiber-optic light is being used. 8:50:13 Physical assessment completed. ASA score P 2 - A patient with mild systemic disease as per Hemant Laura MD. 8:50:16 1) 90+ Normal kidney functon but urine findings or structural abnormalities or genetic trait point to kidney disease. 8:50:22 Maximum allowable contrast dose (3.7 X eGFR X 0.75)241 ml. 8:50:28 Sedation plan: IV Moderate Sedation Medication:Versed, Fentanyl 8:50:34 Versed 2 mg I.V. was administered by Anai Machado RN; for sedation; Verbal order read back and verified. 8:50:44 Fentanyl 50 mcg was administered by Anai Machado RN; for sedation; Verbal order read back and verified. 8:51:20 Procedure started. 8:52:15 Local anesthetic to right femoral artery with Lidocaine 2% by Hemant Laura MD.INITIAL ACCESS ONLY 8:52:29 A 5 Fr sheath was inserted into the Right Femoral artery 8:52:34 Zero performed for pressure channel P1 8:52:51 A MULTIPACK JL 4.0 5Fr catheter was advanced over the wire and used for Left Coronary Angiography. 8:53:56 LCA angiography performed. 8:54:04 Injector settings: Ml/sec: 3, Volume: 6, 8:54:34 Catheter removed. 8:54:40 A MULTIPACK 3DRC 5Fr catheter was advanced over the wire and used for Right Coronary Angiography. 8:54:52 Versed 2 mg I.V. was administered by Anai Machado RN; for sedation; Verbal order read back and verified. 8:54:56 Fentanyl 50 mcg was administered by Anai Machado RN; for sedation; Verbal order read back and verified. 8:55:32 RCA angiography performed. 8:55:38 Injector settings: Ml/sec: 3, Volume: 6, 8:55:48 A MULTIPACK Pigtail 5 Fr catheter was advanced over the wire and used for LV Angiography. 8:56:27 Injector settings: Ml/sec: 5, Volume: 15, 8:56:31 LV gram done using REZA 8:56:48 LV hemodynamics recorded. 8:57:00 EF : 55 % 8:57:10 Catheter removed. 8:57:12 Proceeding to intervention. 8:57:25 SHEATH 6FR [place] (DYU473) opened to sterile field. 8:57:38 GUIDE 6FR HS I catheter (LA6HSI) opened to sterile field. 8:57:49 INFLATOR Merit BasixCompak (SR5408) opened to sterile field. 8:57:59 WHISPER 300cm guide wire ([id number]) opened to sterile field. 8:58:17 Sheath upsized to a 6 Fr Short. 8:58:26 ACC Pre-intervention NERIS Flow is 3. 8:58:38 6 Fr HS1 guide catheter was inserted over the wire 8:59:01 Pre PCI Site: [place] mRCA has 90% stenosis. 8:59:45 Heparin Bolus 5000 units I.V. was administered by Anai Machado RN; for anticoagulation; verified with Dr. Villanueva Verbal order read back and verified. 8:59:57 Integrilin (Bolus 2mg/ml) 6.8 ml I.V. was administered by Anai Machado RN; for antiplatelet therapy; Verbal order read back and verified. 9:00:07 Integrilin (Bolus 2mg/ml) 3.2 ml wasted was administered by Anai Machado RN; for antiplatelet therapy; Verbal order read back and verified. 9:00:14 Plavix 600 mg P.O. was administered by Anai Machado RN; for antiplatelet therapy; Verbal order read back and verified. 9:01:27 [id number] wire advanced. 9:03:03 Inflate balloon Inflation number: 1 A EMERGE OTW 3.0 x 15 balloon ([id number]) was prepped and advanced across the Mid RCA , then inflated to 10 MIGUEL for 0:20 (min:sec) . 9:05:18 Balloon removed over the wire. 9:05:52 Place stent Inflation Number: 2 A PETERSON OTW 3.5 x 18 stent ([id number]) was prepped and advanced across the Mid RCA . The stent was deployed at 14 MIGUEL for 0:22 (min:sec) . 9:07:12 Stent catheter was removed intact over wire. 9:07:18 ACC Post-intervention NERIS Flow is 3. 9:07:39 Post PCI Site: [place] mRCA has 0% stenosis. 9:07:46 Wire removed. 9:07:46 Guide catheter removed. 9:07:49 EXOSEAL 6Fr (EX600) opened to sterile field. 9:08:04 Sheath removed intact; hemostasis achieved with Exoseal to the Right Femoral artery. 9:08:08 Procedure ended.(Physican Out) 9:08:25 Contrast amount:Isovue 300 66ml. 9:08:29 Maximum allowable dose exceeded? No. 9:08:37 Fluoroscopy time 03.50 minutes. 9::44 Flurop Dose total: 500 9:: Fluoroscopy dose: 500 mGy 9::05 Dose Area Product 55486 mGy/cm. 9:: Sharps counted by scrub and verified by R.N. 9:09:14 Post-op/insertion site Right Femoral artery dressed using a 4 x 4 and Tegaderm. 9::23 Post right femoral artery:stable 9::38 Post-procedure physical assessment completed. ASA score P 2 - A patient with mild systemic disease as per Hemant Laura MD. 9::44 Post procedure rhythm: unchanged. 9::50 Estimated blood loss: 10 ml 9:09:51 Post procedure instruction explained to patient.Patient verbalizes understanding. 9::53 Patient needs reinforcement of post procedure teaching. 9:10:36 Procedure type changed to Cath procedure, Diagnostic procedure, LHC, [facility] w/Coronaries, Sedation Charges, Moderate Sedation up to 15 minutes, PCI procedure, Coronary Stent, Coronary Stent Initial, Hemochron ACT Test 9:10:39 Procedure and supply charges have been captured, reviewed, submitted and are correct. 9:10:42 ACT drawn and resulted at 186 seconds. (normal therapeutic range 180-240 seconds). 9:11:24 Procedure Complication : No complications 9:11:27 Vital chart was stopped 9:11:31 [facility] Findings: MVD- PCI performed (see procedure note) 9:11:37 Operative report dictated upon procedure completion. 9:11:38 See physician's report for complete and final results. 9:11:41 Report given to Pre/Post Procedure Room. 9:11:46 Patient transfered to Pre/Post Procedure Room with Stretcher. 9:12:23 Procedure ended. 9:12:23 Full Disclosure recording stopped 9:12:32 ACC-PCI Only Patient was given prescriptions, or instructed by Hemant Laura MD to start/continue the following medications upon discharge: Plavix 9:12:44 End room use (Document Last) Intervention Summary Intervention Notes Time ActionType Lesion and Equipment Action# Pressure Duration Attributes Used 9:03:03 Inflate Mid RCA EMERGE OTW 1 10 00:20 balloon 3.0 x 15 balloon ([id number]) 9:05:52 Place stent Mid RCA PETERSON OTW 3.5 2 14 00:22 x 18 stent ([id number]) Device Usage Item Name Manufacture Quantity Catalog Number Hospital Part Current M inimal Lot# / Charge Number Stock Stock Serial# Code ACIST Syringe Acist 1 96446 700237 308476 358986 2 0 (30594) Medical Systems Inc Bag Decanter Microtek 1 2001S 793526 12739 434872 5 (2001S) Medical Inc. Medline Cath Medline 1 [id number] 268889 34495 537929 5 Pack ([id number]) ACIST Hand Acist 1 43268 164239 588426 396311 5 Control Medical (97551) Systems Inc ACIST Acist 1 30021 344341 937077 734045 5 Manifold Medical (00973) Systems Inc DIAGNOSTIC Cardinal 1 RT8786 826103 87893 890521 3 0 Multipack 5Fr Health catheter set (FR1512) Tegaderm 4 x 3M 1 1626W 930480 251898 430160 5 4 (1626W) SHEATH 5FR Terumo 1 BPJ789 093801 730426 648735 5 [place] (FUS552) EMERALD Guide Cardinal 1 502-455 855538 096507 074939 5 Wire Health (502-455) MULTIPACK JL Cardinal 1 780858 5 4.0 5Fr Health catheter MULTIPACK Cardinal 1 208198 5 3DRC 5Fr Health catheter MULTIPACK Cardinal 1 723142 5 Pigtail 5 Fr Health catheter SHEATH 6FR Terumo 1 NAW103 784305 184288 538618 4 0 [place] (OHR429) GUIDE 6FR HS Medtronic 1 LA6HSI 768293 77722 210855 1 I catheter (LA6HSI) INFLATOR Merit 1 PZ9435 953758 782556 965514 1 5 [facility] Medical BasixCompak (QP8698) WHISPER 300cm [place] 1 [id number] 393430 242941 953803 5 guide wire Vascular ([id number]) EMERGE OTW [place] 1 [id number] 542501 527875 686758 5 [id number] 3.0 x 15 Scientific balloon ([id number]) PETERSON OTW 3.5 Medtronic 1 [id number] 016931 2866654 866990 5 [id number] x 18 stent ([id number]) EXOSEAL 6Fr Cardinal 1 EX600 357419 189017 363027 1 0 (EX600) Health Signature Audit [place] Stage Time Signature Unsigned Intra-Procedure 02/18/2020 Cele 9:13:14 AM Anthony RT(R) (CV) Intra-Procedure 02/18/2020 Anai Machado 9:13:56 AM RN Intra-Procedure 02/18/2020 Hemant Loera 9:14:42 AM Chalo STEWART [id number] [place] [address]
[2020-02-18] MEDS ORDERED: HYDROCHLOROTH12.5 M1 PO (07:31)
[2020-02-18] MEDS ORDERED: TERBINAFINE HC250 MG PO (07:31)
[2020-02-18] MEDS ORDERED: BAYER CHEWABLE81 MG PO (07:32)
[2020-02-18] MEDS ORDERED: CALCIUM 600 +1 EAC3 PO (07:32)
[2020-02-18 07:52] VITALS: BP 124/68; Ht 162.6 cm; Wt 73.6 kg
[2020-02-18 08:09] LABS: CALC OSMOLALITY 280 mosm/kg (275-300); CALCIUM 9.2 mg/dL (8.5-10.1); CARBON DIOXIDE 29.7 mmol/L (21.0-32.0); CHLORIDE - SERUM 105 mmol/L (98-107); CREATININE - SERUM 0.7 mg/dL (0.6-1.3); GLUCOSE 105 mg/dL (74-106); POTASSIUM - SERUM 3.8 mmol/L (3.5-5.1); SODIUM 140 mmol/L (136-145); UREA NITROGEN 19 mg/dL (7-18); eGFR NON AFRICAN AMERICAN 87 mL/min (90-120)
[2020-02-18 08:34] LABS: BASOPHILS 0.5 % (0-2); EOSINOPHILS 2.2 % (0-7); HEMATOCRIT 38.6 % (36.0-48.0); HEMOGLOBIN 12.9 g/dL (12-16); IMMATURE GRANULOCYTES 0.3 % (0-5); LYMPHOCYTES 26.7 % (15-50); MCH 29.3 pg (26.0-34.0); MCHC 33.4 g/dL (31.0-37.0); MCV 87.7 fL (80.0-100.0); MEAN PLATELET VOLUME 12.3 fL (7.4-10.4); MONOCYTES 8.5 % (2-11); NEUTROPHILS 61.8 % (40-80); RDW 14.3 % (11.5-14.5); WBC 7.7 10x3/uL (4.8-10.8)
[2020-02-18 08:37] LABS: PLATELET COUNT 154 10x3/uL (130-400)
--- NOTE | 2020-02-18 09:25 | NUR ---
PATIENT ARRIVED TO ROOM 6, PLACED ON CM AND 2L NC. VSS. FRIEND PRESENT AT BEDSIDE PREVIOUSLY UPDATED BY PHYSICIAN AT BEDSIDE. RIGHT GROIN DRESSING IS CDI, NO S/S OF BLEEDING OR HEMATOMA.
[2020-02-18] MEDS ORDERED: PLAVIX75 MG PO (09:32)
--- NOTE | 2020-02-18 09:40 | NUR ---
PATIENT RESTING, VSS ON 2L NC. RIGHT GROIN DRESSING IS CDI, NO S/S OF BLEEDING OR HEMATOMA. NO C/O PAIN, NUMBNESS, OR TINGLING. TOLERATING PO FLUIDS AND FOOD, NO N/V. 2+ PEDAL PULSES.
--- NOTE | 2020-02-18 10:10 | NUR ---
PATIENT INTERMITTENTLY RESTING, VSS ON 2L NC. NO C/O PAIN, NUMBNESS, OR TINLGING. NO N/V. RIGHT GROIN DRESSING IS CDI, NO S/S OF BLEEDING OR HEMATOMA.
--- NOTE | 2020-02-18 10:40 | NUR ---
PATIENT RESTING, HEAD FLAT ON PILLOW. RIGHT GROIN DRESSING IS CDI, NO S/S OF BLEEDING OR HEMATOMA. NO C/O PAIN, NUMBNESS, OR TINGLING. TOLERATING PO FLUIDS, NO N/V. VSS ON 2L NC.
--- NOTE | 2020-02-18 11:10 | NUR ---
PATIENT INTERMITTENLTY RESTING, VSS ON 2L NC. RIGHT GROIN DRESSING IS CDI, NO S/S OF BLEEDING OR HEMATOMA. NO C/O PAIN, NUMBNESS, OR TINGLING. NO N/V.
--- NOTE | 2020-02-18 11:40 | NUR ---
PATIENT AWAKE, HEAD OF BED FLAT. VSS ON 1L NC. RIGHT GROIN DRESSING IS CDI, NO S/S OF BLEEDING OR HEMATOMA. NO C/O PAIN, NUMBNESS, OR TINGLING. TOLERATING PO FLUIDS, NO N/V.
--- NOTE | 2020-02-18 12:10 | NUR ---
HEAD OF BED ELEVATED TO 60 DEGREES, RIGHT GROIN DRESSING IS CDI, NO S/S OF BLEEDING OR HEMATOMA. NO C/O PAIN, NUMBNESS, OR TINGLING. PATIENT GIVEN TURKEY SANDWICH AND WATER PER REQUEST, NO N/V. VSS ON ROOM AIR.
--- NOTE | 2020-02-18 12:31 | NUR ---
WRITTEN AND VERBAL DISCHARGE INSTRUCTIONS AND MEDICATION COMPLIANCE GIVEN TO PATIENT, SHE VOICES UNDERSTANDING. VSS ON ROOM AIR. HEAD OF BED AT 90 DEGREES. RIGHT GROIN DRESSING IS CDI, NO S/S OF BLEEDING OR HEMATOMA. NO C/O PAIN, NUMBNESS, OR TINGLING. NO N/V.IV REMOVED WITH CATHLON FULLY INTACT. PATIENT DISCONNECTED FROM MONITORS TO GET DRESSED.
--- NOTE | 2020-02-18 12:45 | NUR ---
PATIENT VOIDED WITHOUT DIFFICULTY. RIGHT GROIN DRESSING IS CDI, NO S/S OF BLEEDING OR HEMATOMA. PATIENT TRANSPORTED VIA WHEELCHAIR TO CAR WITH FRIEND DRIVING, ALL BELONGINGS WITH PATIENT.
--- NOTE | 2020-02-20 08:51 | OP ---
PATIENT NAME: RALF VALDEZ MEDICAL RECORD: [id number] :49 LOCATION:D.CAT ADMISSION DATE: SURGEON: RUTH DIXON MD DATE OF OPERATION: 02/18/2020 PROCEDURE: Left heart catheterization, selective coronary angiography, right femoral artery approach. CATHETERS: A 5-Citizen [place] sheath, 5/4 left and right Maxi, 5/4 pig. The procedure was well tolerated. We proceeded to do a PTCA stenting of the right coronary artery. The procedure was finished. FINDINGS: Left ventriculography in 30-degree REZA view: Normal wall motion, normal systolic function. CORONARY ANATOMY: LEFT MAIN: Left main is free of disease. LAD: LAD has mild luminal irregularities. No focal stenosis. CIRCUMFLEX: Free of disease. RIGHT CORONARY ARTERY: Previous to the previously placed stent has a 90% plus severe diffuse stenosis, correlating nicely with nuclear study. PLAN: Intervention momentarily. DESCRIPTION OF PROCEDURE: A 5-Citizen [place] sheath was exchanged for a 6-Citizen [place] sheath. A hockey stick guide catheter provided excellent guide catheter support. A Whisper wire placed across the tightly occluded right down this portion of the vessel. Predeployment balloon 3.0 x 50 mm [place]. Stent deployed was a 3.5 x 18 Tian drug-eluting up stent to 14 atmospheres for 45 second. Final angiography shows excellent resolution 90% plus stenosis, no significant residual. NERIS flow was 3 throughout the procedure. Sheath closed with ExoSeal device. Plavix loaded in the lab. TRANSINT:[id number] Voice Confirmation ID: [id number] DOCUMENT ID: [id number] RUTH DIXON MD at 0851 CC: [id number] DICTATION DATE: 02/18/20 0919 SIGNS AND DISPLAYS SALESPERSON: 02/18/20 1017 DEP CLI 02/18/20 [place] [id number] [place] [id number]
== END 2020-02-18 12:45 ==
LOC: D.CATH 07:11
PROVIDERS: ATTEND Internal Medicine Interventional Cardiology
DX: I25.119 Atherosclerotic heart disease of native coronary artery with unspecified angina pectoris (principal); I10 Essential (primary) hypertension; E78.5 Hyperlipidemia, unspecified; R06.09 Other forms of dyspnea
CPT/HCPCS: 93458; C9600